=== PATIENT | female | born 1930 | race Caucasian/White ===

== ENCOUNTER 2019-02-06 05:50 | Day surgery (SDC) | payer MEDICARE, BC ==
[2019-02-06] VITALS (8 sets, daily range): BP systolic 110–130; BP diastolic 58–79
[~2019-02-06] VITALS: Ht 161.3 cm; Wt 86.2 kg
[~2019-02-06 05:50] MED LIST: ALBUTEROL SULF8.5 GM INH; CARDIZEM CD240 MG ORAL; CRANBERRY400 MG PO; DETROL2 MG ORAL; DOCUSATE SODIU100 MG ORAL; ELIQUIS2.5 MG PO; FUROSEMIDE20 M1 ORAL; LYSINE1000 MG PO; MUCINEX100 MG PO; POTASSIUM CHLO10 ME3 ORAL; Proparacaine 0.5% Opth Soln 15ml RIGHT EYE ONE; SYNTHROID100 MCG ORAL; Vit B Complex PO; citracal PO
[2019-02-06] MEDS ORDERED: Proparacaine 0.5% Opth Soln 15ml ONE (06:14)
[2019-02-06] MEDS: Cyclopentolate 1% Opth Sol 2ml RIGHT EYE SCH ×3 (06:34→06:59)
[2019-02-06] MEDS: Tropicamide 1% Opth 15ml Soln RIGHT EYE SCH ×3 (06:34→06:59)
[2019-02-06] MEDS: Phenylephrine 2.5% Op 2ml Soln RIGHT EYE SCH ×3 (06:34→07:00)
[2019-02-06] MEDS ORDERED: PROBIOTIC1 EAC4 PO (06:51)
[2019-02-06] MEDS ORDERED: Kenalog-40 1ml Vial ONE (07:09)
[2019-02-06] MEDS ORDERED: EPINEPHrine 1mg/1ml Amp ONE (07:09)
[2019-02-06] MEDS ORDERED: Lidocaine 2% MPF 5ml Vial INJ ONE (07:09)
[2019-02-06] MEDS ORDERED: Dexamethasone 4mg/ml vial ONE (07:10)
[2019-02-06] MEDS ORDERED: Maxitrol Opth Oint 3.5gm ONE (07:10)
[2019-02-06] MEDS ORDERED: Goniotaire 2.5% Opth Soln - 15ml ONE (07:10)
[2019-02-06] MEDS ORDERED: Neosporin Oph Soln 5ml Btl ONE (07:10)
[2019-02-06] MEDS ORDERED: Carbachol 0.01% Op Soln 1.5ml vial ONE (07:10)
[2019-02-06] MEDS ORDERED: Sodium Hyaluronate 10 mg/ml 0.85ml ONE (07:11)
[2019-02-06] MEDS ORDERED: BSS 15ml BTL ONE (07:11)
[2019-02-06] MEDS ORDERED: Tetracaine 0.5% Opth 4ml Soln ONE (07:11)
[2019-02-06] MEDS ORDERED: Povidone-Iodine 5% opth solution ONE (07:11)
[2019-02-06] MEDS ORDERED: BSS 500ml btl ONE (07:11)
[2019-02-06] MEDS ORDERED: Bupivacaine 0.75% 30ml vial INJ ONE (07:11)
[2019-02-06] MEDS ORDERED: Midazolam 2mg/2ml Inj ONE (07:13)
[2019-02-06] MEDS ORDERED: Propofol 200mg/20ml IV ONE ×2 (07:13→08:09)
[2019-02-06] MEDS ORDERED: fentaNYL 100 mcg/2 mL IV ONE (07:13)
[2019-02-06] MEDS ORDERED: LR 1000ml ONE (08:00)
[2019-02-06] MEDS ORDERED: fentaNYL 100 mcg/2 mL IV PRN (08:00)
[2019-02-06] MEDS ORDERED: Sterile Water Irrig 1000ml IRRIG ONE (08:00)
[2019-02-06] MEDS ORDERED: NS Irrig 1000ml ONE (08:00)
[2019-02-06] MEDS ORDERED: DiphenhydrAMINE 50mg/ml Inj ONE (08:09)
[2019-02-06] MEDS ORDERED: Lidocaine 1% MPF 10mg/ml 5ml ONE (08:09)
--- NOTE | 2019-02-06 08:26 | Pre-Procedure Note/Attestation ---
Pre-Procedure Note/Attestation Complete Prior to Procedure Planned Procedure: right Procedure Narrative: Dislocated IOL OD Indications for Procedure Pre-Operative Diagnosis: Dislocated IOL OD Attestation I attest that I discussed the nature of the procedure; its benefits; risks and complications; and alternatives (and the risks and benefits of such alternatives ), prior to the procedure, with the patient (or the patient's legal data entry representative). I attest that, if there was a reasonable possibility of needing a blood transfusion, the patient (or the patient's legal data entry representative) was given the [facility] standardized written summary, pursuant to the Arjun Romana Blood Safety Act ([place] [facility] and Safety Code # 1645, as amended). I attest that I re-evaluated the patient just prior to the surgery and that there has been no change in the patient's H&P, except as documented below: Maulik Barkley M.D., MD February 06, 2019 08:26
--- NOTE | 2019-02-06 08:30 | Operative Note - PDOC ---
Operative Note Operative Note Pre-op Diagnosis: Dislocated IOL OD Procedure: Procedure: Pars plana vitrectomy, IOL removal, ACIOL placement, AFE, RIGHT EYE Post-op Diagnosis: Same Post-op Diagnosis: same as pre-op Surgeon: Filippo Anesthesia: local Specimen: none Complications: none Condition: stable Estimated Blood Loss: minimal Drains: none Implant(s) used?: No Indications for Procedure Indications for the procedure: The patient has vision loss due to dislocated IOL. He presents today for surgery after review of the risks, benefits, alternative and signing informed consent into the medical chart. Description of Procedure Surgeon: Maulik Barkley M.D. Anesthesia: Peribulbar Complications: None Implant: [id number], 17.5 D Procedure performed: The patient was met in the pre-op area. Informed consent was reviewed the eye was marked and dilated. The patient was transferred to the operative suite, where cardiopulmonary monitoring was established and retrobulbar anesthetic was administered without complications. The eye was prepped and draped in sterile ophthalmic fashion. Under microscopic visualization the 23 gauge infusion line was placed 3.5 millimeters inferotemporally. After visualization of the tip in the vitreous cavity, the infusion line was turned on. Superior conjunctival peritomy was performed. Then the superotemporal and superonasal cannulas were placed. Under BIOM visualization, peripheral and core vitrectomy was performed. The dislocated IOL was freed from vitreous connections and the dense sommerings ring was removed. No iatrogenic tears were noted. The IOL was externalized and fixated into the scleral; but one haptic was not intact to allow for adequate scleral fixation thus the IOL was elevated into the anterior chamber. A 7mm scleral tunnel was created superiorly with a crescent blade and keratome. Healon was used to inflate the anterior chamber and the IOL was removed through the scleral tunnel. Inspection of the posterior pole and periphery revealed no iatrogenic breaks. The anterior chamber lens (MTA) was verified to be the correct size and power. Pilocarpine was infused in the eye to constrict the pupil. Viscoelastic was used to inflate the anterior chamber. A sheets glide was used to insert the lens. The lens was positioned with a Sinskey hook. The scleral tunnel was sutured with 10-0 nylon sutures. PI was deferred due to risk of hemorrhage. The infusion line and cannulas were removed. The sclerotomies were sutured with 7-0 vicryl suture. The eye maintained normal intraocular pressure. The conjunctiva was closed with 5-0 plain gut suture. Subconjunctival vancomycin and dexamethasone were administered. The lid speculum was removed. The eye was cleaned of prep and drape. Maxitrol ointment was applied and a pressure patch was placed. The patient was turned over to the anesthesia team who transferred her in stable condition to the PACU. Maulik Barkley M.D., MD February 06, 2019 08:29
--- NOTE | 2019-02-06 09:40 | Anethesia Preoperative Eval ---
Anesthesia Pre-op PMH/ROS General Date of Evaluation: February 06, 2019 Time of Evaluation: 08:00 Anesthesiologist: gisele ASA Score: ASA 3 Mallampati Score Class I : Soft palate, uvula, fauces, pillars visible Class II: Soft palate, uvula, fauces visible Class III: Soft palate, base of uvula visible Class IV: Only hard plate visible Mallampati Classification: Class III Surgeon: juan pablo Diagnosis: dislocated IOL right eye Surgical Procedure: pars plana vitrectomy; scleal fixation Anesthesia History: none Social History: smoking Family History: no anesthesia problems Allergies: Coded Allergies: MUPIROCIN (Verified Allergy, Intermediate, rash, 02/05/19) SULFAMETHOXAZOLE (Verified Allergy, Intermediate, rash, 02/05/19) TRIMETHOPRIM (Verified Allergy, Intermediate, rash, 02/05/19) Medications: see eMAR Patient NPO?: Yes NPO Date: February 06, 2019 NPO Time: 08:00 Past Medical History Cardiovascular: Reports: HTN, CAD, arrhythmia, other - hx afib Pulmonary: Reports: asthma, COPD; Denies: PRESTON, other Gastrointestinal/Genitourinary: Denies: GERD, CRI, ESRD, other Neurologic/Psychiatric: Denies: dementia, CVA, depression/anxiety, TIA, other Endocrine: Reports: hypothyroidism; Denies: DM, steroids, other HEENT: Reports: cataract (L), cataract (R) Hematology/Immune: Denies: anemia, DVT, bleeding disorder, other Musculoskeletal/Integumentary: Reports: OA Other: obesity PSxH Narrative: lumbar fusion, breast surgery Anesthesia Pre-op Phys. Exam Physician Exam Last Vital Signs Date Time Temp Pulse Resp B/P (MAP) Pulse Ox O2 Delivery O2 Flow Rate FiO2 02/06/19 06:44 97.6 79 20 130/70 98 Room Air Constitutional: NAD Neurologic: CN 2-12 intact Cardiovascular: RRR Respiratory: CTA Gastrointestinal: S/NT/ND Airway Exam Mallampati Score: Class III MO: limited Neck: thick ROM: limited Dentures: no upper, no lower Anesthesia Pre-op A/P Studies Pre-op Studies: EKG - afb/sinus Risk Assessment & Plan Assessment: denies cp/sob/change in health Plan: mac Status Change Before Surgery: No Brittany Trevizo CRNA February 06, 2019 09:39
--- NOTE | 2019-02-06 10:01 | Immediate Post-Op Evaluation ---
Immediate Post-Op Evalulation Immediate Post-Op Evalulation Procedure: pars plana vitrectomy Date of Evaluation: February 06, 2019 Time of Evaluation: 10:00 IV Fluids: 300 Blood Pressure Systolic: 115 Blood Pressure Diastolic: 66 Pulse Rate: 86 Respiratory Rate: 14 O2 Sat by Pulse Oximetry: 98 Temperature (Fahrenheit): 97.4 Pain Score (1-10): 0 Nausea: No Vomiting: No Complications none Patient Status: awake, reacts, patent Hydration Status: adequate Drug: none Brittany Trevizo CRNA February 06, 2019 10:01
[2019-02-07 07:31] VITALS: BP 110/72
--- NOTE | 2019-02-07 07:31 | 48 Hour Post Anesthesia Eval ---
Post Anesthesia Evaluation Procedure: pars plana vitrectomy Date of Evaluation: February 07, 2019 Time of Evaluation: 07:31 Blood Pressure Systolic: 110 0: 72 Pulse Rate: 87 Respiratory Rate: 14 O2 Sat by Pulse Oximetry: 97 Airway: patent Nausea: No Vomiting: No Hydration Status: adequate Cardiopulmonary Status: stable Mental Status/LOC: patient returned to baseline Post-Anesthesia Complications: none Follow-up care needed: N/A Brittany Trevizo CRNA February 07, 2019 07:31
== END 2019-02-06 12:00 | disposition home or self-care (01) ==
LOC: SUR 05:50
DX: T85.22XA Displacement of intraocular lens, initial encounter (principal); I11.9 Hypertensive heart disease without heart failure; E03.9 Hypothyroidism, unspecified; J44.9 Chronic obstructive pulmonary disease, unspecified; Z88.2 Allergy status to sulfonamides; Z88.8 Allergy status to other drugs, medicaments and biological substances; Z98.1 Arthrodesis status; M19.90 Unspecified osteoarthritis, unspecified site; X58.XXXA Exposure to other specified factors, initial encounter; Y92.9 Unspecified place or not applicable
CPT/HCPCS: 66852; 66986; J1100; J1200; J2250; J2704; J3010; J3370; J3490; V2632; 94003; 94150